=== PATIENT | male | born 1960 | race Caucasian/White ===

== ENCOUNTER 2023-12-24 10:46 | Emergency (ER) | payer OTHER ==
[2023-12-24] VITALS (9 sets, daily range): BP systolic 119–146; BP diastolic 75–87
[~2023-12-24] VITALS: Ht 182.9 cm; Wt 83.0 kg
[2023-12-24] MEDS ORDERED: KLOR-CON M2020 MEQ PO (11:05)
[2023-12-24] MEDS ORDERED: B1100 MG (11:05)
[2023-12-24] MEDS ORDERED: AMLODIPINE BESY10 MG PO (11:05)
[2023-12-24] MEDS ORDERED: INDAPAMIDE2.5 MG PO (11:06)
[2023-12-24] MEDS ORDERED: IBUPROFEN 800 MG/TAB PO ONE (11:35)
[2023-12-24] MEDS ORDERED: oxyCODONE 10MG/APAP 325 MG 1 COMBO TAB PO ONE (11:35)
[2023-12-24] MEDS ORDERED: MOTRIN800 MG PO (13:42)
[2023-12-24] MEDS ORDERED: PERCOCET 5/325M1 TAB PO (13:42)
== END 2023-12-24 14:14 | disposition home or self-care (01) | DRG 605 ==
LOC: ED 10:46
DX: S80.02XA Contusion of left knee, initial encounter (principal); S80.01XA Contusion of right knee, initial encounter; I10 Essential (primary) hypertension; W01.0XXA Fall on same level from slipping, tripping and stumbling without subsequent striking against object, initial encounter; Y92.009 Unspecified place in unspecified non-institutional (private) residence as the place of occurrence of the external cause; Z20.822 Contact with and (suspected) exposure to COVID-19